=== PATIENT | female | born 1990 | race Caucasian/White ===

== ENCOUNTER → 2016-12-01 | Outpatient (CLI) | payer BC ==
[~2016-12-01] VITALS: Ht 175.3 cm; Wt 67.0 kg
[~2016-12-01] MED LIST: PRENATAL TABLE1 EAC3 PO
[2016-12-01 16:41] VITALS: BP 104/61
== END | disposition home or self-care (01) ==
LOC: IVINF 11-30 16:30
DX: Z31.82 Encounter for Rh incompatibility status (principal); Z3A.28 28 weeks gestation of pregnancy; Z67.11 Type A blood, Rh negative
CPT/HCPCS: 96372; J2790

== ENCOUNTER 2017-03-01 10:31 | Inpatient (IN) | payer BC ==
[2017-03-01] VITALS (11 sets, daily range): BP systolic 110–136; BP diastolic 69–98
[~2017-03-01] VITALS: Ht 175.3 cm; Wt 77.1 kg
[2017-03-01 14:56] LABS: BASOPHIL (%) 0.2 % (0-1); EOSINOPHIL (%) 0.1 % (0-5); HEMOGLOBIN 12.7 G/DL (11.9-15.5); IMMATURE GRANULOCYTE (%) 0.8 % (0.0-0.7); LYMPHOCYTE (%) 5.7 % (15-42); LYMPHOCYTE COUNT 1.2 K/uL (1.0-2.8); MCH 31.8 PG (29.0-34.0); MCHC 35.3 G/DL (30.0-36.0); MCV 90.2 FL (83-99); MONOCYTE (%) 2.5 % (3-12); MONOCYTE COUNT 0.5 K/uL (0-0.8); NEUTROPHIL (%) 90.7 % (45-76); PLATELET COUNT 194 K/uL (156-360); RBC DIS.WIDTH-SD 39.8 % (39-53); RED BLOOD COUNT 3.99 M/uL (3.80-5.20)
[2017-03-02 06:35] LABS: BASOPHIL (%) 0.3 % (0-1); BASOPHIL COUNT 0.1 K/uL (0-0.1); EOSINOPHIL (%) 0.4 % (0-5); EOSINOPHIL COUNT 0.1 K/uL (0-0.3); HEMATOCRIT 30.8 % (36.0-46.0); IMMATURE GRANULOCYTE (%) 0.6 % (0.0-0.7); LYMPHOCYTE (%) 14.4 % (15-42); LYMPHOCYTE COUNT 2.8 K/uL (1.0-2.8); MCH 31.3 PG (29.0-34.0); MCHC 34.7 G/DL (30.0-36.0); MCV 90.1 FL (83-99); MONOCYTE (%) 6.1 % (3-12); MONOCYTE COUNT 1.2 K/uL (0-0.8); NEUTROPHIL (%) 78.2 % (45-76); PLATELET COUNT 203 K/uL (156-360); RBC DIS.WIDTH-CV 12.4 % (11.8-14.6); RBC DIS.WIDTH-SD 40.3 % (39-53); RED BLOOD COUNT 3.42 M/uL (3.80-5.20); WHITE BLOOD COUNT 19.1 K/uL (4.1-10.2)
[2017-03-02 06:41] LABS: HEMOGLOBIN 10.7 G/DL (11.9-15.5)
[2017-03-03] MEDS ORDERED: IBUPROFEN800 MG PO (09:04)
[2017-03-03] MEDS ORDERED: CAMILA0.35 MG PO (09:04)
== END 2017-03-03 13:30 | disposition home or self-care (01) | DRG 775 ==
LOC: LDRP-OP → 2WEST 10:32 → LDRP-OP 03-21 09:50
PROVIDERS: Advanced Practice Midwife
DX: O70.0 First degree perineal laceration during delivery (principal); Z37.0 Single live birth; Z3A.41 41 weeks gestation of pregnancy
CPT/HCPCS: 83030; 85025; 86850; 86870; 86900; 86901; J2590; J2790